=== PATIENT | female | born 1950 | race Caucasian/White ===

== ENCOUNTER 2018-10-18 08:18 | Day surgery (SDC) | payer MEDICARE ==
[2018-10-13 13:35] VITALS: BMI 20.7
--- NOTE | 2018-10-18 07:24 | P.GSHP ---
History of Present Illness H&P Date: 10/18/18 CHIEF COMPLAINT: Colon screen HISTORY OF PRESENT ILLNESS: The patient is a 67-year-old female who presents for colon screen. Lower endoscopy was offered for further evaluation and management. PAST MEDICAL HISTORY: Please see list. PAST SURGICAL HISTORY: Please see list. MEDICATIONS: Please see list. ALLERGIES: Please see list. SOCIAL HISTORY: No illicit drug use FAMILY HISTORY: No reports of Crohn disease or ulcerative colitis. REVIEW OF ORGAN SYSTEMS: CONSTITUTIONAL: No reports of fevers or chills. PHYSICAL EXAM: VITAL SIGNS: Stable GENERAL: Well-developed pleasant in no acute distress. HEENT: No scleral icterus. Extraocular movements grossly intact. Moist buccal mucosa. NECK: Supple without lymphadenopathy. CHEST: Unlabored respirations. Equal bilateral excursions. CARDIOVASCULAR: Regular rate and rhythm. Distal 2+ pulses. ABDOMEN: Soft, nontender, nondistended. MUSCULOSKELETAL: No clubbing, cyanosis, or edema. ASSESSMENT: 1. Colon screen. PLAN: 1. Recommend proceeding with a lower endoscopy Past Medical History Past Medical History: Osteoarthritis (OA), Skin Disorder, Thyroid Disorder Additional Past Medical History / Comment(s): eczema, History of Any Multi-Drug Resistant Organisms: None Reported Past Surgical History: Adenoidectomy, Ear Surgery, Hernia Repair, Orthopedic Surgery, Tonsillectomy Additional Past Surgical History / Comment(s): Colonoscopy, R wrist & Arm surgery, adenoidectomy x 2 Past Anesthesia/Blood Transfusion Reactions: Motion Sickness Smoking Status: Former smoker - Past Family History Mother Family Medical History: Cancer Additional Family Medical History / Comment(s): skin Medications and Allergies Home Medications Medication Instructions Recorded Confirmed Type Aspirin [Adult Low Dose Aspirin EC] 81 mg PO DAILY 12/23/17 10/13/18 History Cholecalciferol (Vitamin D3) 1,000 unit PO DAILY 12/23/17 10/13/18 History [Vitamin D3] Levothyroxine Sodium [Synthroid] 50 mcg PO DAILY 12/23/17 10/13/18 History Cetirizine HCl [Zyrtec] 10 mg PO DAILY PRN 10/13/18 10/13/18 History Montelukast Sodium [Singulair] 10 mg PO DAILY PRN 10/13/18 10/13/18 History Allergies Allergy/AdvReac Type Severity Reaction Status Date / Time levofloxacin [From Levaquin] Allergy Severe Tendonitis Verified 10/13/18 13:27
[~2018-10-18 08:18] MED LIST: LACTATED RINGERS 1,000 ML IV SCH; LIDOCAINE 1% 20 ML VIAL (10MG/ML) FOR IV START INTRADERMA PRN
[2018-10-18 08:38] VITALS: TEMP 98
[2018-10-18] MEDS ORDERED: LACTATED RINGERS 1,000 ML IV ONE (08:38)
[2018-10-18] MEDS ORDERED: PROPOFOL 10 MG/ML 20 ML VIAL IV ONE (09:20)
[2018-10-18] MEDS ORDERED: GLYCOPYRROLATE 0.2 MG/ML 2 ML VIAL ONE (09:20)
--- NOTE | 2018-10-18 09:55 | P.PCN ---
Date of Procedure: 10/18/18 Description of Procedure: PREOPERATIVE DIAGNOSIS: Personal history of colon polyps, high risk POSTOPERATIVE DIAGNOSIS: Personal history of colon polyps, high risk Sigmoid colon polyp, adenoma OPERATION: Colonoscopy to the ileocecal valve and appendiceal orifice. Colonoscopy with polypectomy using cold forceps SURGEON: Doreen Veloz MD. ANESTHESIA: MAC. INDICATIONS: The patient is a 67-year-old female who presents for colonoscopy screening. She has personal history of colon polyps last colonoscopy 5 years. Benefits and risks were described and informed consent was obtained. DESCRIPTION OF PROCEDURE: The patient had undergone Suprep. She had been brought into the operating room and laid in the left lateral decubitus position. After adequate intravenous sedation, the rectum was examined with 2% lidocaine jelly. No external hemorrhoids were encountered. The rectal tone was within normal limits. No lesions were palpated in the rectal vault. An Olympus colonoscope was advanced until the ileocecal valve and appendiceal orifice were clearly viewed. The prep was fair. The scope was removed with visualization of each mucosal fold. No scattered diverticulosis was encountered. A flat 4 mm adenoma 15 cm from the anal verge was cold forceps biopsy to completion. No evidence of focal colitis was found. Retroflexion of the scope demonstrated grade no internal hemorrhoids. The colon was desufflated. During the procedure, patient had multiple bradycardic events carefully monitored. The patient had tolerated the procedure well. Withdrawal time was over 6 minutes. FINDINGS: Aronchick preparation quality scale 2 (1-5) Internal hemorrhoids, grade 1 No external prolapsed hemorrhoids. No arteriovenous malformations. No focal colitis. No scattered diverticulosis was encountered. A flat 4 mm adenoma 15 cm from the anal verge was cold forceps biopsy to completion. RECOMMENDATIONS: Lower endoscopy in 3 years, 2021 Plan - Discharge Summary Discharge Rx Participant: No New Discharge Prescriptions: No Action Levothyroxine Sodium [Synthroid] 50 mcg PO DAILY Cholecalciferol (Vitamin D3) [Vitamin D3] 1,000 unit PO DAILY Aspirin [Adult Low Dose Aspirin EC] 81 mg PO DAILY Montelukast Sodium [Singulair] 10 mg PO DAILY PRN PRN Reason: Allergy Symptoms Cetirizine HCl [Zyrtec] 10 mg PO DAILY PRN PRN Reason: Allergy Symptoms Discharge Medication List Aspirin [Adult Low Dose Aspirin EC] 81 mg PO DAILY 12/23/17 [History] Cholecalciferol (Vitamin D3) [Vitamin D3] 1,000 unit PO DAILY 12/23/17 [History] Levothyroxine Sodium [Synthroid] 50 mcg PO DAILY 12/23/17 [History] Cetirizine HCl [Zyrtec] 10 mg PO DAILY PRN 10/13/18 [History] Montelukast Sodium [Singulair] 10 mg PO DAILY PRN 10/13/18 [History] Follow up Appointment(s)/Referral(s): Doreen Veloz MD [STAFF PHYSICIAN] - As Needed Patient Instructions/Handouts: Colorectal Polyps (GEN) Activity/Diet/Wound Care/Special Instructions: Repeat colonoscopy 3 years, 2021 Discharge Disposition: HOME SELF-CARE
[2018-10-18 09:56] VITALS: RESP 16
[2018-10-18 10:13] VITALS: BP 155/80; PULSE 61
== END 2018-10-18 10:26 | disposition home or self-care (01) ==
LOC: ORWHC2ENDO 08:18
PROVIDERS: ATTEND Surgery Plastic and Reconstructive Surgery
DX: Z12.11 Encounter for screening for malignant neoplasm of colon (principal); Z86.010 Personal history of colon polyps; Z79.82 Long term (current) use of aspirin; D12.5 Benign neoplasm of sigmoid colon; E07.9 Disorder of thyroid, unspecified; Z87.891 Personal history of nicotine dependence; Z79.890 Hormone replacement therapy; Z79.51 Long term (current) use of inhaled steroids; Z79.899 Other long term (current) drug therapy; Z88.1 Allergy status to other antibiotic agents; J45.909 Unspecified asthma, uncomplicated
CPT/HCPCS: 88305; 45380; J2704

== ENCOUNTER 2021-10-21 09:25 | Day surgery (SDC) | payer MEDICARE ==
[2021-10-20 08:31] VITALS: BMI 20.2
--- NOTE | 2021-10-21 08:20 | P.GSHP ---
History of Present Illness H&P Date: 10/21/21 CHIEF COMPLAINT: Colon screen HISTORY OF PRESENT ILLNESS: The patient is a 70-year-old female who presents for colon screen. Lower endoscopy was offered for further evaluation and management. PAST MEDICAL HISTORY: Please see list. PAST SURGICAL HISTORY: Please see list. MEDICATIONS: Please see list. ALLERGIES: Please see list. SOCIAL HISTORY: No illicit drug use FAMILY HISTORY: No reports of Crohn disease or ulcerative colitis. REVIEW OF ORGAN SYSTEMS: CONSTITUTIONAL: No reports of fevers or chills. PHYSICAL EXAM: VITAL SIGNS: Stable GENERAL: Well-developed pleasant in no acute distress. HEENT: No scleral icterus. Extraocular movements grossly intact. Moist buccal mucosa. NECK: Supple without lymphadenopathy. CHEST: Unlabored respirations. Equal bilateral excursions. CARDIOVASCULAR: Regular rate and rhythm. Distal 2+ pulses. ABDOMEN: Soft, nontender, nondistended. MUSCULOSKELETAL: No clubbing, cyanosis, or edema. ASSESSMENT: 1. Colon screen. PLAN: 1. Recommend proceeding with a lower endoscopy Past Medical History Past Medical History: Eye Disorder, Osteoarthritis (OA), Skin Disorder, Thyroid Disorder Additional Past Medical History / Comment(s): Dry Eye, Glaucoma, Eczema. History of Any Multi-Drug Resistant Organisms: None Reported Past Surgical History: Adenoidectomy, Ear Surgery, Hernia Repair, Orthopedic Surgery, Tonsillectomy Additional Past Surgical History / Comment(s): Colonoscopy, righ wrist and arm surgery, adenoidectomy X2. Past Anesthesia/Blood Transfusion Reactions: No Reported Reaction, Motion Sickness Past Psychological History: No Psychological Hx Reported Smoking Status: Former smoker, Light tobacco smoker Past Alcohol Use History: Rare Additional Past Alcohol Use History / Comment(s): Quit smoking 23 yrs ago, light smoker for 10-15 yrs. Past Drug Use History: None Reported - Past Family History Mother Family Medical History: Cancer Additional Family Medical History / Comment(s): Skin cancer. Medications and Allergies Home Medications Medication Instructions Recorded Confirmed Type Aspirin [Adult Low Dose Aspirin EC] 81 mg PO HS 12/23/17 10/20/21 History Levothyroxine Sodium [Synthroid] 50 mcg PO QAM 12/23/17 10/20/21 History Cetirizine HCl [Zyrtec] 10 mg PO HS PRN 10/13/18 10/20/21 History Cholecalciferol (Vitamin D3) 125 mcg PO HS 10/20/21 10/20/21 History [Vitamin D3 (125 MCG = 5,000 IU)] Allergies Allergy/AdvReac Type Severity Reaction Status Date / Time levofloxacin [From Levaquin] Allergy Severe Tendonitis Verified 10/20/21 09:28
[~2021-10-21 09:25] MED LIST changes: +LIDOCAINE 1% (10MG/ML) FOR IV START INTRADERMA PRN; -LIDOCAINE 1% 20 ML VIAL (10MG/ML) FOR IV START INTRADERMA PRN
[2021-10-21 09:53] VITALS: TEMP 98.6
[2021-10-21] MEDS ORDERED: PROPOFOL 10 MG/ML 20 ML VIAL IV ONE (10:32)
--- NOTE | 2021-10-21 11:06 | P.PCN ---
Date of Procedure: 10/21/21 Description of Procedure: PREOPERATIVE DIAGNOSIS: Personal history of colon polyps Colonoscopy screening POSTOPERATIVE DIAGNOSIS: Tubular adenoma sigmoid colon Internal hemorrhoids, grade 2 OPERATION: Colonoscopy to the ileocecal valve and appendiceal orifice, cecum Colonoscopy with cold forceps biopsy SURGEON: Doreen Veloz MD. ANESTHESIA: MAC. INDICATIONS: The patient is an 70-year-old female who presents personal history of colon polyps. Last colonoscopy less than 5 years. Benefits and risks were described and informed consent was obtained. DESCRIPTION OF PROCEDURE: The patient had undergone Miralax prep. The patient had been brought into the operating room and laid in the left lateral decubitus position. After adequate intravenous sedation, the rectum was examined with 2% lidocaine jelly. The prostate was unremarkable. No external hemorrhoids were encountered. The rectal tone was within normal limits. No lesions were palpated in the rectal vault. An Olympus colonoscope was advanced until the cecum, ileocecal valve and appendiceal orifice were clearly viewed. The prep was fair. No large sigmoid diverticulosis was encountered. Colonic polyps were found and removed. No evidence of focal colitis was found. Retroflexion of the scope demonstrated grade 1 internal hemorrhoids without active bleeding or inflammation. The colon was desufflated. The patient had tolerated the procedure well. Withdrawal time was over 6 minutes. FINDINGS: Aronchick preparation quality scale 2+ (1-5) Internal hemorrhoids, grade 1 No external hemorrhoids No arteriovenous malformations. No large sigmoid diverticulosis Removal of 1 polyps: - Cold forceps biopsy at 15 cm from the anal verge, 4 mm polyp, sigmoid No focal colitis. RECOMMENDATIONS: Repeat colonoscopy 5 years, 2026. Plan - Discharge Summary Discharge Rx Participant: No New Discharge Prescriptions: Continue RX: Levothyroxine Sodium [Synthroid] 50 mcg PO QAM RX: Aspirin [Adult Low Dose Aspirin EC] 81 mg PO HS RX: Cetirizine HCl [Zyrtec] 10 mg PO HS PRN PRN Reason: Allergy Symptoms RX: Cholecalciferol (Vitamin D3) [Vitamin D3 (125 MCG = 5,000 IU)] 125 mcg PO HS Discharge Medication List RX: Aspirin [Adult Low Dose Aspirin EC] 81 mg PO HS 12/23/17 [History] RX: Levothyroxine Sodium [Synthroid] 50 mcg PO QAM 12/23/17 [History] RX: Cetirizine HCl [Zyrtec] 10 mg PO HS PRN 10/13/18 [History] RX: Cholecalciferol (Vitamin D3) [Vitamin D3 (125 MCG = 5,000 IU)] 125 mcg PO HS 10/20/21 [History] Follow up Appointment(s)/Referral(s): Doreen Veloz MD [STAFF PHYSICIAN] - As Needed Patient Instructions/Handouts: Colorectal Polyps (GEN), *Surgery [facility] - (Anesthesia) Endoscopy Discharge Instructions Activity/Diet/Wound Care/Special Instructions: Repeat colonoscopy 5 years, 2026 Discharge Disposition: HOME SELF-CARE
[2021-10-21 11:26] VITALS: BP 156/76; PULSE 58; RESP 20
== END 2021-10-21 11:42 | disposition home or self-care (01) ==
LOC: ORWHC2ENDO 09:25
PROVIDERS: ATTEND Surgery Plastic and Reconstructive Surgery
DX: Z12.11 Encounter for screening for malignant neoplasm of colon (principal); K63.5 Polyp of colon; K64.0 First degree hemorrhoids; Z86.010 Personal history of colon polyps; M19.90 Unspecified osteoarthritis, unspecified site; H04.129 Dry eye syndrome of unspecified lacrimal gland; H40.9 Unspecified glaucoma; L30.9 Dermatitis, unspecified; E07.9 Disorder of thyroid, unspecified; Z87.891 Personal history of nicotine dependence; Z79.82 Long term (current) use of aspirin; Z79.890 Hormone replacement therapy; Z88.1 Allergy status to other antibiotic agents; Z90.89 Acquired absence of other organs; Z98.890 Other specified postprocedural states; Z80.8 Family history of malignant neoplasm of other organs or systems
CPT/HCPCS: 88305; 45380; J2704